=== PATIENT | female | born 2000 | race Hispanic/Latino ===

== ENCOUNTER 2023-01-03 12:45 | Emergency (ER) | payer OTHER ==
[~2023-01-03] VITALS: Ht 147.3 cm; Wt 67.9 kg
[2023-01-03] MEDS ORDERED: ACETAMINOPHEN 500 MG TAB PO ONE (14:50)
[2023-01-03] MEDS ORDERED: CYCLOBENZAPRINE 10MG TABLET PO ONE (19:25)
[2023-01-03] MEDS ORDERED: LIDOCAINE 5% (LIDODERM) PATCH TD ONE (19:25)
[2023-01-03] MEDS ORDERED: CYCL-707 PO (21:28)
[2023-01-03] MEDS ORDERED: ANEC4CRE3 TOP (21:28)
[2023-01-03 21:40] VITALS: BP 119/72; TEMP 98.7; O2SAT 99
[2023-01-04] MEDS ORDERED: MACR100C43 PO (00:56)
== END 2023-01-03 21:42 | disposition home or self-care (01) ==
LOC: M ED 12:45
DX: O23.41 Unspecified infection of urinary tract in pregnancy, first trimester (principal); O26.891 Other specified pregnancy related conditions, first trimester; M54.50 Low back pain, unspecified; N89.8 Other specified noninflammatory disorders of vagina; Z3A.08 8 weeks gestation of pregnancy; Z79.899 Other long term (current) drug therapy

== ENCOUNTER 2023-03-25 17:21 | Emergency (ER) | payer OTHER ==
[~2023-03-25] VITALS: Ht 147.3 cm; Wt 65.9 kg
[~2023-03-25 17:21] MED LIST: ANEC4CRE3 TOP; CYCL-707 PO; MACR100C43 PO
[2023-03-25] MEDS ORDERED: LIDOCAINE 4% CREAM 5GM (LMX4) TOP ONE (18:15)
[2023-03-25] MEDS ORDERED: ACETAMINOPHEN 500 MG TAB PO ONE (18:15)
[2023-03-25 20:11] VITALS: BP 110/53; TEMP 98.9; O2SAT 100
== END 2023-03-25 20:15 | disposition home or self-care (01) ==
LOC: M ED 17:21
DX: S83.004A Unspecified dislocation of right patella, initial encounter (principal); Y92.009 Unspecified place in unspecified non-institutional (private) residence as the place of occurrence of the external cause; Y93.41 Activity, dancing; Y99.9 Unspecified external cause status

== ENCOUNTER 2023-07-07 10:53 | Emergency (ER) | payer OTHER ==
[2023-07-07] MEDS ORDERED: PRENMIS3 PO (11:32)
[2023-07-07] MEDS ORDERED: ACET325C5 PO (11:32)
== END 2023-07-07 15:18 | disposition admitted as inpatient to this hospital (09) ==
LOC: M ED 10:53
DX: Z53.21 Procedure and treatment not carried out due to patient leaving prior to being seen by health care provider (principal)

== ENCOUNTER 2023-07-07 11:12 | Outpatient (CLI) | payer OTHER ==
[~2023-07-07] VITALS: Ht 147.3 cm; Wt 71.7 kg
[2023-07-07] MEDS ORDERED: ACET325C5 PO (11:32)
[2023-07-07] MEDS ORDERED: PRENMIS3 PO (11:32)
[2023-07-07] MEDS ORDERED: HOME MED LIST COMPLETE! XX SCH (11:35)
[2023-07-07 11:38] VITALS: BP 120/57
[2023-07-07 11:59] LABS: HEMATOCRIT 35.2 % (36.0-47.0); HEMOGLOBIN 11.9 g/dl (12.0-15.5); MEAN CORPUSCULAR HEMOGLOBIN 29.5 pg (27.0-33.0); MEAN CORPUSCULAR HGB CONC 33.8 g/dl (32.0-36.5); MEAN CORPUSCULAR VOLUME 87.3 fl (80.0-96.0); PLATELET COUNT, AUTOMATED 289 10^3/uL (150-450); RED BLOOD COUNT 4.03 10^6/uL (4.00-5.40); WHITE BLOOD COUNT 11.3 10^3/uL (4.0-10.0)
[2023-07-07 12:10] LABS: INR 0.92; PROTHROMBIN TIME 12.1 SECONDS (12.5-14.5)
[2023-07-07 12:52] VITALS: BP 124/63
[2023-07-07 14:01] VITALS: BP 113/53
== END 2023-07-07 15:30 | disposition home or self-care (01) ==
LOC: M LDO 11:12
PROVIDERS: ATTEND Obstetrics & Gynecology
DX: S30.0XXA Contusion of lower back and pelvis, initial encounter (principal); O9A.213 Injury, poisoning and certain other consequences of external causes complicating pregnancy, third trimester; Z3A.34 34 weeks gestation of pregnancy; W10.8XXA Fall (on) (from) other stairs and steps, initial encounter; Y93.9 Activity, unspecified; Y92.009 Unspecified place in unspecified non-institutional (private) residence as the place of occurrence of the external cause
CPT/HCPCS: 36415; 59025; 76815; 76820; 85027; 85384; 85610; 85730; G0463

== ENCOUNTER 2023-07-15 05:40 | Outpatient (CLI) | payer OTHER ==
[~2023-07-15] VITALS: Ht 147.3 cm; Wt 74.0 kg
[~2023-07-15 05:40] MED LIST changes: +ACET325C5 PO; +PRENMIS3 PO
[2023-07-15 05:59] VITALS: BP 112/63
[2023-07-15] MEDS ORDERED: HOME MED LIST COMPLETE! XX SCH (06:05)
[2023-07-15 07:31] VITALS: BP 122/57
[2023-07-15] MEDS: LOPERAMIDE 2 MG CAPLET PO ONE (08:12)
[2023-07-15 09:13] LABS: APPEARANCE, URINE CLEAR (CLEAR); BACTERIA, URINE AUTO NEGATIVE (NEGATIVE); BILIRUBIN, URINE AUTO NEGATIVE (NEGATIVE); BLOOD, URINE BLOOD NEGATIVE (NEGATIVE); COLOR, URINE STRAW (YELLOW); GLUCOSE, URINE (UA) AUTO NEGATIVE (NEGATIVE); KETONE, URINE AUTO NEGATIVE (NEGATIVE); LEUKOCYTE ESTERASE, URINE AUTO 1+ (NEGATIVE); NITRITE, URINE AUTO NEGATIVE (NEGATIVE); PROTEIN, URINE AUTO NEGATIVE (NEGATIVE); RBC, URINE AUTO 0 /HPF (0-3); SPECIFIC GRAVITY URINE AUTO 1.004 (1.002-1.035); SQUAMOUS EPITHELIAL CELL UR AU 3 /HPF (0-6); UROBILINOGEN, URINE AUTO 0.2 mg/dL (0.0-2.0); WBC, URINE AUTO 3 /HPF (0-3)
== END 2023-07-15 08:30 | disposition home or self-care (01) ==
LOC: M LDO 05:40
PROVIDERS: ATTEND Obstetrics & Gynecology
DX: O99.613 Diseases of the digestive system complicating pregnancy, third trimester (principal); K52.9 Noninfective gastroenteritis and colitis, unspecified; Z3A.35 35 weeks gestation of pregnancy
CPT/HCPCS: 59025; 81001; 87086; G0463

== ENCOUNTER 2023-08-19 09:20 | Inpatient (IN) | payer OTHER ==
[~2023-08-19] VITALS: Ht 147.3 cm; Wt 77.0 kg
[2023-08-19] VITALS (21 sets, daily range): BP systolic 99–181; BP diastolic 55–87
[2023-08-19] MEDS ORDERED: LIDOCAINE 1% MDV 20ML VIAL INFIL PRN (10:10)
[2023-08-19] MEDS ORDERED: OXYTOCIN DRIP 30 UNITS in IV 1 EA IV PRN (10:10)
[2023-08-19] MEDS ORDERED: LR 1,000 ML IV SCH (10:10)
[2023-08-19] MEDS ORDERED: TRANEXAMIC ACID INJection 1,000 MG in NS 100 ML IV PRN (10:10)
[2023-08-19] MEDS ORDERED: METHYLERGONOVINE MALEATE 0.2MG/ML 1ML VIAL IM PRN (10:10)
[2023-08-19 10:54] LABS: HEMATOCRIT 36.6 % (36.0-47.0); HEMOGLOBIN 12.3 g/dl (12.0-15.5); MEAN CORPUSCULAR HEMOGLOBIN 29.1 pg (27.0-33.0); MEAN CORPUSCULAR HGB CONC 33.6 g/dl (32.0-36.5); MEAN CORPUSCULAR VOLUME 86.7 fl (80.0-96.0); PLATELET COUNT, AUTOMATED 248 10^3/uL (150-450); RED BLOOD COUNT 4.22 10^6/uL (4.00-5.40); WHITE BLOOD COUNT 10.6 10^3/uL (4.0-10.0)
[2023-08-19] MEDS: LACTATED RINGER'S 1000 ML IV STA (12:30)
[2023-08-19] MEDS: BUTORPHANOL 2 MG/ML 1ML VIAL IV PRN (12:31)
[2023-08-19] MEDS: PROMETHAZINE 25MG/ML 1ML VIAL IV PRN (12:31)
[2023-08-19] MEDS ORDERED: NALOXONE INJ 0.4MG/1ML VIAL IV PRN (19:50)
[2023-08-19] MEDS ORDERED: LR 500 ML IV PRN (19:50)
[2023-08-19] MEDS ORDERED: diphenhydrAMINE 50MG/ML VIAL IV PRN (19:50)
[2023-08-19] MEDS ORDERED: ONDANSETRON 4MG 2ML VIAL IV PRN (19:50)
[2023-08-19] MEDS ORDERED: EPIDURAL/PCA KEYS XX PRN (19:50)
[2023-08-19] MEDS ORDERED: ePHEDrine SULFATE 25 MG/5 ML(5MG/ML) SYRINGE IVP PRN (19:50)
[2023-08-19] MEDS: FENTANYL/ROPIVACAINE/NACL BAG 100 ML EPIDURAL SCH (20:19)
[2023-08-20] VITALS (11 sets, daily range): BP systolic 103–146; BP diastolic 57–96; O2SAT 97–98
[2023-08-20] MEDS: LR 1,000 ML IV SCH ×2 (00:03→02:35)
[2023-08-20] MEDS: OXYTOCIN DRIP 30 UNITS in IV 1 EA IV SCH ×2 (00:03→04:52)
[2023-08-20] MEDS ORDERED: ONDANSETRON 4MG 2ML VIAL IV PRN (02:35)
[2023-08-20] MEDS ORDERED: DIBUCAINE 1% OINTMENT 30GM TOP PRN (02:35)
[2023-08-20] MEDS ORDERED: RHOGAM 300MCG (1500IU) INJ IM SCH (02:35)
[2023-08-20] MEDS ORDERED: DOCUSATE SODIUM 100MG CAPSULE PO PRN (02:35)
[2023-08-20] MEDS ORDERED: IBUPROFEN 600MG TAB PO PRN (02:35)
[2023-08-20] MEDS ORDERED: METOCLOPRAMIDE INJ 10MG/2ML VIAL IV PRN (02:35)
[2023-08-20] MEDS ORDERED: METHYLERGONOVINE MALEATE 0.2MG/ML 1ML VIAL IM PRN (02:35)
[2023-08-20] MEDS: ACETAMINOPHEN 500 MG TAB PO PRN (02:45)
[2023-08-20] MEDS: IBUPROFEN 800 MG TAB PO PRN (05:02)
[2023-08-20] MEDS: PRENATAL VITAMINS CHEWABLE TABLET PO SCH (09:31)
[2023-08-20] MEDS: ACETAMINOPHEN TAB 650MG DOSE (2X325MG) PO PRN (21:27)
[2023-08-21 06:00] VITALS: BP 105/61; O2SAT 97
[2023-08-21 09:15] VITALS: BP 112/70; TEMP 97.7; O2SAT 98
[2023-08-21 09:30] VITALS: BP 112/70; TEMP 97.7; O2SAT 98
[2023-08-22] MEDS ORDERED: MEASLES,MUMPS,RUBELLA VACCINE INJ (MMR-II) SC.IMMUN ONE (09:00)
== END 2023-08-21 12:18 | disposition home or self-care (01) | DRG 807 ==
LOC: M LDI 09:20 → M OBS 08-20 04:40
PROVIDERS: ADMIT Advanced Practice Midwife; ATTEND Obstetrics & Gynecology
PROC: 10907ZC Drainage of Amniotic Fluid, Therapeutic from Products of Conception, Via Natural or Artificial Opening (ICD-10-PCS; 2023-08-19)
PROC: 10E0XZZ Delivery of Products of Conception, External Approach (ICD-10-PCS; principal; 2023-08-20)
DX: O41.03X0 Oligohydramnios, third trimester, not applicable or unspecified (principal); Z37.0 Single live birth; Z3A.40 40 weeks gestation of pregnancy